=== PATIENT | male | born 1950 | race Caucasian/White ===

== ENCOUNTER → 2019-10-30 | Outpatient (CLI) | payer MEDICARE, BC ==
[~2019-10-30] MED LIST: ASCO10004 PO; ASPI81TA45 PO; KRIL1CAP29 PO; LORA-446 PO; MULT-516 PO; PANT40TA3 PO; SIMV40TA3 PO; UBID100C10 PO; ZOLP10TA5 PO
== END | disposition home or self-care (01) ==
LOC: STAR 14:36
PROVIDERS: ATTEND Surgery
DX: Z01.818 Encounter for other preprocedural examination (principal); K40.90 Unilateral inguinal hernia, without obstruction or gangrene, not specified as recurrent
CPT/HCPCS: 93005

== ENCOUNTER 2019-11-06 13:29 | Observation (INO) | payer MEDICARE, BC ==
[~2019-11-06] VITALS: Ht 162.6 cm; Wt 63.8 kg
[2019-11-06] MEDS ORDERED: LACTATED RINGERS 1,000 ML IV SCH (13:40)
[2019-11-06] MEDS ORDERED: EPINEPHRINE 1 MG/ML, 1ML ONE (13:59)
[2019-11-06] MEDS ORDERED: BUPIVACAINE/PF 0.5% ONE (13:59)
[2019-11-06] MEDS ORDERED: ACETAMINOPHEN 500 MG TABLET PO ONE (14:00)
[2019-11-06] MEDS ORDERED: GABAPENTIN 300 MG CAPSULE PO ONE (14:00)
[2019-11-06] MEDS ORDERED: FENTANYL PF 250 MCG/5ML ONE (15:28)
[2019-11-06] MEDS ORDERED: HALOPERIDOL 5 MG/ML IV PRN (15:30)
[2019-11-06] MEDS ORDERED: LABETALOL 5MG/ML, 20ML IV PRN (15:30)
[2019-11-06] MEDS ORDERED: HYDROmorphone 2 MG/ML, 1ML IVPush PRN (15:30)
[2019-11-06] MEDS ORDERED: PROMETHAZINE 25 MG/ML, 1ML IV PRN (15:30)
[2019-11-06] MEDS ORDERED: hydrALAzine 20 MG/ML, 1ML IV PRN (15:30)
[2019-11-06] MEDS ORDERED: MEPERIDINE/PF 25MG/ML,1ML IVPush PRN (15:30)
[2019-11-06] MEDS ORDERED: DEXAMETHASONE 4 MG/ML, 1ML ONE (16:43)
[2019-11-06] MEDS ORDERED: CEFAZOLIN 1,000 MG ONE (16:43)
[2019-11-06] MEDS ORDERED: SUCCINYLCHOLINE 20 MG/ML, 10ML ONE (16:43)
[2019-11-06] MEDS ORDERED: GLYCOPYRROLATE 0.2MG/1ML, 5ML ONE (16:43)
[2019-11-06] MEDS ORDERED: NEOSTIGMINE 1 MG/ML, 10ML ONE (16:43)
[2019-11-06] MEDS ORDERED: ROCURONIUM 10MG/ML,5ML ONE (16:43)
[2019-11-06] MEDS ORDERED: ONDANSETRON 2MG/ML, 2ML ONE (16:43)
[2019-11-06] MEDS ORDERED: PROPOFOL 10 MG/ML, 20ML ONE (16:43)
[2019-11-06] MEDS ORDERED: FENTANYL PF 100 MCG/2ML ONE ×2 (17:08→17:23)
[2019-11-06] MEDS ORDERED: OXYcodone 5 MG/5 ML ORAL.SOL UDC ONE ×2 (17:08→17:23)
[2019-11-06] MEDS: FENTANYL PF 100 MCG/2ML IV PRN ×2 (17:10→17:20)
[2019-11-06] MEDS ORDERED: MEPERIDINE/PF 25MG/ML,1ML ONE (17:11)
[2019-11-06] MEDS: OXYcodone 5 MG/5 ML ORAL.SOL UDC PO PRN ×3 (17:30→23:49)
[2019-11-06 19:30] VITALS: BP 155/103
[2019-11-06] MEDS ORDERED: KETOROLAC 30 MG/1 ML IV PRN (19:30)
[2019-11-06] MEDS ORDERED: DIPHENHYDRAMINE 50 MG/ML, 1ML IVPush PRN (19:30)
[2019-11-06] MEDS ORDERED: OXYcodone 5 MG/5 ML ORAL.SOL UDC PO PRN (19:30)
[2019-11-06] MEDS ORDERED: ONDANSETRON 2MG/ML, 2ML IVPush PRN (19:30)
[2019-11-06] MEDS ORDERED: HYDROmorphone 2 MG/ML, 1ML IV PRN (19:30)
[2019-11-06] MEDS ORDERED: ZOLPIDEM 10MG TABLET PO SCH (21:00)
[2019-11-06] MEDS ORDERED: LORazepam 1MG TABLET PO SCH (21:00)
[2019-11-06] MEDS ORDERED: SIMVASTATIN 40 MG TABLET PO SCH (21:00)
[2019-11-06] MEDS ORDERED: ASPIRIN 81 MG TABLET CHEW PO SCH (21:00)
[2019-11-06] MEDS: GABAPENTIN 100 MG CAPSULE PO SCH (21:31)
[2019-11-06 23:26] VITALS: BP 167/99
[2019-11-07 04:00] VITALS: BP 131/84
[2019-11-07] MEDS: OXYcodone 5 MG/5 ML ORAL.SOL UDC PO PRN ×2 (04:03→08:05)
[2019-11-07] MEDS ORDERED: PANTOPROZOLE 40MG TABLET PO SCH (06:00)
[2019-11-07 07:41] VITALS: BP 160/80
[2019-11-07] MEDS: GABAPENTIN 100 MG CAPSULE PO SCH (08:04)
[2019-11-07] MEDS ORDERED: OMEGA-3/FISH OIL CAPSULE PO SCH (09:00)
[2019-11-07] MEDS ORDERED: MULTIVITAMIN 1 TABLET PO SCH (09:00)
[2019-11-07] MEDS ORDERED: ASCORBIC ACID 500 MG TABLET PO SCH (09:00)
[2019-11-07 09:06] VITALS: BP 151/82
[2019-11-07] MEDS ORDERED: OXYC5TAB2 PO (09:16)
[2019-11-07] MEDS ORDERED: GABA-826 PO (09:23)
== END 2019-11-07 10:12 | disposition home or self-care (01) ==
LOC: OR 13:29 → 4NE 18:02 → OR 21:13 → 4NE 21:14 → DCLOUNGE 11-07 10:02
PROVIDERS: ADMIT Surgery; ATTEND Surgery
DX: K40.20 Bilateral inguinal hernia, without obstruction or gangrene, not specified as recurrent (principal); K41.90 Unilateral femoral hernia, without obstruction or gangrene, not specified as recurrent; R39.198 Other difficulties with micturition; K21.9 Gastro-esophageal reflux disease without esophagitis; G47.33 Obstructive sleep apnea (adult) (pediatric); I25.10 Atherosclerotic heart disease of native coronary artery without angina pectoris
CPT/HCPCS: 49650; C1781; G0378; J0171; J0330; J0690; J1100; J2175; J2405; J2704; J2710; J3010; J7120; S0020; S2900